=== PATIENT | male | born 1930 | race Caucasian/White ===

== ENCOUNTER → 2019-01-11 | Outpatient (REF) | payer MEDICARE ==
[~2019-01-11] MED LIST: ALLERGY RELF10 M1 PO; COUMADIN5 MG; DOXYCYCLINE HYC50 MG PO; FLOVENT HFA110 MCG IN; HYZAAR1 TA2 PO; IRON CHEWS PO; LIPITOR10 MG PO; MULTI 50+ PO; NASACORT A55 MCG/ACT; NASAL DECONGES0.05 %; PROVENTIL HFA IN; PROVENTIL0.083 % IN; SPIRIVA IN; SYMBICORT1 AE1 IN; VITAMIN C500 M6 PO; ZOVIRAX400 MG PO
[2019-01-11 11:03] LABS: INTERNATIONAL NORMALIZED RATIO 2.3 RATIO (0.7-1.3)
== END | disposition home or self-care (01) ==
LOC: LAB 09:57
PROVIDERS: ATTEND Nurse Practitioner Family
DX: Z86.79 Personal history of other diseases of the circulatory system (principal); Z51.81 Encounter for therapeutic drug level monitoring; Z79.01 Long term (current) use of anticoagulants